=== PATIENT | female | born 1940 | race Caucasian/White ===

== ENCOUNTER → 2016-07-03 | Outpatient (CLI) | payer MEDICARE ==
[~2016-07-03] MED LIST: BACL10TA PO; CYCL-375 PO; DIAZ2TAB PO; FLUT16SP NS; HYDR-4246 PO; WARF3TAB6 PO; WARF4TAB6 PO
== END ==
LOC: WC.BC 13:11
DX: Z12.31 Encounter for screening mammogram for malignant neoplasm of breast (principal)
CPT/HCPCS: 77063; G0202